=== PATIENT | female | born 1975 | race African-American/Black ===

== ENCOUNTER 2019-07-08 13:40 | Emergency (ER) | payer MEDICAID ==
[~2019-07-08] VITALS: Ht 167.6 cm; Wt 72.0 kg
[2019-07-08] MEDS ORDERED: IBUPROFEN 600MG TABLET PO ONE (14:15)
[2019-07-08] MEDS ORDERED: LORAZEPAM 0.5MG TABLET PO ONE (14:45)
[2019-07-08 15:05] VITALS: BP 124/75
== END 2019-07-08 15:10 | disposition home or self-care (01) ==
LOC: ER 13:40
DX: S93.402A Sprain of unspecified ligament of left ankle, initial encounter (principal); Z86.73 Personal history of transient ischemic attack (TIA), and cerebral infarction without residual deficits; W18.30XA Fall on same level, unspecified, initial encounter; Y93.01 Activity, walking, marching and hiking; Y92.89 Other specified places as the place of occurrence of the external cause; Y99.8 Other external cause status
CPT/HCPCS: 29515; 73600; 99283

== ENCOUNTER 2023-11-04 03:00 | Emergency (ER) | payer MEDICAID ==
[~2023-11-04] VITALS: Ht 167.6 cm; Wt 69.0 kg
[~2023-11-04 03:00] MED LIST: ALPR0.25 MT; DIPH25CA83 MT; IBUP-2437 MT; PHEN50TA MT
[2023-11-04 03:06] VITALS: BP 114/82; PULSE 95; RESP 16; TEMP 98.5; O2SAT 100
[2023-11-04] MEDS ORDERED: LIDOCAINE HCL 1% 20ML VIAL (Pyxis) INJ INFIL ONE (04:15)
[2023-11-04] MEDS ORDERED: TETANUS, DIPHTHERIA, PERTUSSIS VAC/PF 0.5ML (>10YR OLD) IM ONE (04:15)
[2023-11-04] MEDS ORDERED: ACETAMINOPHEN 325MG TABLET PO ONE (04:15)
== END 2023-11-04 04:12 | disposition left against medical advice (07) ==
LOC: ER 03:00
DX: Z53.21 Procedure and treatment not carried out due to patient leaving prior to being seen by health care provider (principal)
CPT/HCPCS: 99281

== ENCOUNTER 2025-08-16 01:30 | Emergency (ER) | payer MEDICAID, OTHER ==
[~2025-08-16] VITALS: Ht 172.7 cm; Wt 77.0 kg
[2025-08-16 01:33] VITALS: O2SAT 99
[2025-08-16] MEDS: KETOROLAC 15MG/ML VIAL IM ONE (03:02)
[2025-08-16] MEDS ORDERED: DIPH28.33 TP (03:26)
[2025-08-16 04:01] VITALS: BP 165/72; PULSE 61; RESP 16; TEMP 36.8; O2SAT 99
== END 2025-08-16 04:02 | disposition home or self-care (01) ==
LOC: ER 01:44
DX: T63.441A Toxic effect of venom of bees, accidental (unintentional), initial encounter (principal); Z79.899 Other long term (current) drug therapy; Z86.73 Personal history of transient ischemic attack (TIA), and cerebral infarction without residual deficits; Y92.89 Other specified places as the place of occurrence of the external cause
CPT/HCPCS: 81025; 96372; 99283; J1885; Z7610